=== PATIENT | male | born 1970 | race African-American/Black ===

== ENCOUNTER 2019-04-26 00:27 | Emergency (ER) | payer OTHER ==
[~2019-04-26] VITALS: Ht 185.4 cm; Wt 90.0 kg
[2019-04-26] MEDS ORDERED: MORPHINE SULFATE 4 MG/ML CPJ (NOT FOR IM USE) IV STA (00:35)
[2019-04-26] MEDS ORDERED: TETANUS, DIPHTHERIA, PERTUSSIS VAC/PF 0.5ML (>7YR OLD) IM ONE (00:45)
[2019-04-26] MEDS ORDERED: CEFAZOLIN 1000MG PREMIX 50 ML IV ONE (00:45)
[2019-04-26 00:53] LABS: BASOPHILS % 0.5 % (0.0-2.0); EOSINOPHILS % 3.6 % (0.0-5.0); HEMATOCRIT. 37.8 % (42.0-52.0); HEMOGLOBIN. 12.5 g/dL (14.0-18.0); LYMPHOCYTES % 40.8 % (20.0-50.0); MEAN CORPUSCULAR HEMOGLOBIN 27.5 pg (28.0-32.0); MEAN CORPUSCULAR VOLUME 82.8 fL (80.0-94.0); MEAN PLATELET VOLUME 8.1 fl (7.4-10.4); MONOCYTES % 8.3 % (2.0-8.0); NEUTROPHILS % 46.8 % (40.0-76.0); PLATELET 266 x1000/uL (130-400); RED BLOOD CELL COUNT 4.57 mill/uL (4.7-6.1); RED CELL DISTRIBUTION WIDTH 14.6 % (11.6-14.6)
[2019-04-26 00:59] LABS: CHLORIDE 105 mEq/L (98-107)
[2019-04-26 01:01] LABS: PARTIAL THROMBOPLASTIN TIME 25.2 sec (23.4-31.0); PROTHROMBIN TIME 10.5 sec (9.6-11.0)
[2019-04-26] MEDS ORDERED: IOHEXOL-350 100 ML BOTTLE ONE (02:18)
[2019-04-26 02:41] VITALS: BP 163/84
== END 2019-04-26 04:07 | disposition home or self-care (01) ==
LOC: ER 00:27
DX: S91.002A Unspecified open wound, left ankle, initial encounter (principal); Z87.828 Personal history of other (healed) physical injury and trauma; W32.0XXA Accidental handgun discharge, initial encounter; Y93.89 Activity, other specified; Y92.488 Other paved roadways as the place of occurrence of the external cause
CPT/HCPCS: 36415; 71045; 72170; 75635; 80053; 83690; 85025; 85610; 85730; 86850; 86900; 86901; 90471; 90715; 96365; 96375; 99284; J0690; J2270; Q9967

== ENCOUNTER 2024-07-31 16:48 | Emergency (ER) | payer MEDICAID, OTHER ==
[2024-07-31] MEDS: TETANUS, DIPHTHERIA, PERTUSSIS VAC/PF 0.5ML (>10YR OLD) IM ONE (18:18)
[2024-07-31] MEDS ORDERED: KETO10TA2 MT (19:09)
[2024-07-31] MEDS ORDERED: BO1 TP (19:10)
[2024-07-31] MEDS: LIDOCAINE HCL 1% 20ML VIAL INFIL ONE (19:31)
[2024-07-31] MEDS: SILVER NITRATE APPLICATOR STICK TOP ONE (19:31)
[2024-07-31] MEDS: BACITRACIN ZINC OINT UDPKT TOP ONE (19:31)
[2024-07-31 19:40] VITALS: BP 132/84; PULSE 88; RESP 20; TEMP 37.05852; O2SAT 100
== END 2024-07-31 19:41 | disposition home or self-care (01) ==
LOC: ER 16:48
DX: S61.303A Unspecified open wound of left middle finger with damage to nail, initial encounter (principal); W27.4XXA Contact with kitchen utensil, initial encounter; Y93.89 Activity, other specified; Y92.89 Other specified places as the place of occurrence of the external cause; Y99.8 Other external cause status
CPT/HCPCS: 90715; 11730; 90471; 99284; J3490; Z7610